=== PATIENT | male | born 1955 | race Caucasian/White ===

== ENCOUNTER 2020-11-11 14:57 | Outpatient (REF) | payer BC, SELFPAY ==
[2020-11-11 15:30] LABS: COVID-19 Test Negative (Negative)
== END 2020-11-11 14:58 | disposition home or self-care (01) ==
LOC: HO.LAB 14:57
PROVIDERS: PCP Internal Medicine; Visit Provider Internal Medicine
DX: Z20.822 Contact with and (suspected) exposure to COVID-19 (principal)
CPT/HCPCS: 36415; 87635; C9803

== ENCOUNTER 2021-12-24 14:49 | Outpatient (REF) | payer MEDICARE, SELFPAY ==
--- NOTE | ~2021-12-24 | CT_ITS ---
EXAMINATION: CT CHEST SCREENING CLINICAL INFORMATION: 41 pack year smoking history COMPARISON: None. TECHNIQUE: Multidetector volumetric CT imaging of the chest is performed without contrast using low dose technique. Additional 2D coronal and sagittal reformatted images and axial 3D maximum intensity projection (MIP) images are generated on the CT workstation. This CT examination was performed using dose optimization techniques as appropriate, variously including the following: *Automated exposure control *Adjustment of mA and/or kV according to patient size (this includes techniques or standardized protocols for targeted exams where dose is matched to indication/reason for exam; i.e. extremities or head) *Use of iterative reconstruction technique DLP: 299 mGy-cm FINDINGS: LUNGS: There is mild emphysema. There is mild biapical pleural and parenchymal scarring. There is mild biapical pleural and parenchymal scarring. There is a 2 mm right upper lobe nodule axial image 68 series 5. There is a 2 mm right upper lobe nodule axial image 81 series 5. There is a 3 mm right upper lobe nodule axial image 75 series 5. There is a 2 mm right upper lobe nodule axial image 90 series 5. There is a 2 mm right upper lobe nodule axial image 98 series 5. There is a 2 mm left lower lobe nodule axial image 217 series 5. There are several small peripheral or subpleural right lower lobe nodules adjacent to the major fissures suggestive of subpleural lymph nodes, largest measuring 2 x 5 mm axial image 279 series 5. There is a 2 mm calcified right lower lobe nodule axial image 373 series 5. There is a 2 mm left lower lobe nodule axial image 386 series 5. MEDIASTINUM: The mediastinum is normal. CORONARY ARTERY CALCIFICATION: Moderate. PLEURA: There is no pleural effusion. No pleural mass or thickening. AXILLA: No lymphadenopathy. UPPER ABDOMEN: Unremarkable OSSEOUS STRUCTURES: Degenerative changes. CT/CT lung screening IMPRESSION: Mild emphysema. Mild biapical pleural and parenchymal scarring. Small pulmonary nodules, largest measuring 4 mm in the left lower lobe. Coronary artery calcification. ASSESSMENT: Lung-RADS category 2: Benign RECOMMENDATION: Annual low-dose chest CT follow-up recommended.
== END 2021-12-24 14:50 | disposition home or self-care (01) ==
LOC: HO.CT 14:49
PROVIDERS: PCP Internal Medicine; Visit Provider Physician Assistant Medical
DX: Z12.2 Encounter for screening for malignant neoplasm of respiratory organs (principal); Z87.891 Personal history of nicotine dependence
CPT/HCPCS: 71271; G0296

== ENCOUNTER 2023-01-09 13:05 | Day surgery (SDC) | payer MEDICARE, SELFPAY ==
[2023-01-06 06:44] VITALS: BMI 30.8
--- NOTE | 2023-01-06 10:04 | HO.ANESPROP2 ---
HPI - Anesthesia Eval Consult details Narrative: 67yo M for Colonoscopy PMFSH Active Problems Active Problems: All Active Problems (Updated 01/06/23 @ 06:41 by Morena Holley, RN) Snoring (Acute) Nicotine dependence, cigarettes, uncomplicated (Acute) Past Medical History Medical History (Updated 01/06/23 @ 06:41 by Morena Holley RN) COPD (chronic obstructive pulmonary disease) Thyroid disease Tubular adenoma of colon (~2018) Surgical History Surgical History (Updated 12/24/21 @ 14:34 by Natacha Stephens PA-C) History of surgery on left wrist History of colonoscopy Social History Social History (Updated 12/24/21 @ 14:50 by Natacha Stephens PA-C) Alcohol intake: current Alcohol intake frequency: a few times a week Alcohol type: beer Patient Tobacco Use Status: Current everyday Tobacco user Tobacco use type: Cigarette Years Smoked: (onset 24, 1ppd x 42yrs, 40pyh) Current occupational status: retired [employer] Allergies Allergy/AdvReac Type Severity Reaction Status Date / Time No Known Allergies Allergy Verified 01/06/23 06:40 Home Medications Medication Instructions Recorded Confirmed Last Taken Type albuterol sulfate 90 mcg/actuation 1 puff inhalation QID 01/06/23 Unknown History aerosol inhaler (ProAir HFA) fluticasone propionate 110 2 puff inhalation BID 01/06/23 Unknown History mcg/actuation HFA aerosol inhaler (Flovent HFA) levothyroxine 125 mcg tablet 125 mcg PO DAILY 01/06/23 Unknown History loratadine 10 mg tablet 10 mg PO DAILY 01/06/23 Unknown History Exam Exam Date and Time: January 06, 2023 1004 Height,Weight and Vital Signs: Height 6 ft Weight 102.965 kg Assessment and Plan Assessment Anesthesia Assessment: Chart Reviewed
[2023-01-09 13:18] VITALS: BP 153/90; PULSE 92; RESP 16; TEMP 36.8; O2SAT 98
--- NOTE | 2023-01-09 13:23 | P.CONAN_ITS ---
[facility] Active Problems Active Problems: All Active Problems (Updated 01/06/23 @ 06:41 by Morena Holley, ALEKS) Snoring (Acute) Nicotine dependence, cigarettes, uncomplicated (Acute) Past Medical History Medical History (Updated 01/09/23 @ 13:32 by Mara Rios RN) Hx of fracture of clavicle COPD (chronic obstructive pulmonary disease) Thyroid disease Tubular adenoma of colon (~2018) Surgical History Surgical History History of surgery on left wrist History of colonoscopy Social History Social History Alcohol intake: current Alcohol intake frequency: a few times a week Alcohol type: beer Patient Tobacco Use Status: Former Tobacco user Quit Date: 1 1/2yr ago Tobacco use type: Cigarette Years Smoked: (onset 24, 1ppd x 42yrs, 40pyh) Use of substances other than those prescribed or required for medical reasons: No Are you DNR?: No Advance Directives: No Advance Directives Information Provided: Yes Current occupational status: retired [employer] Allergies Allergy/AdvReac Type Severity Reaction Status Date / Time No Known Allergies Allergy Verified 01/06/23 06:40 Active Medications: Current Medications Albuterol Sulfate (Albuterol Sulfate (0.083%) 2.5 Mg/3 Ml Vial.Neb) 2.5 mg INHALE ONCE PRN PRN Reason: Shortness of Breath/Wheezing Lactated Ringer's (Lr) 1,000 mls @ 100 mls/hr IVCONT .Q10H RYLEE Sodium Biphosphate/Sodium Phosphate (Sodium Phosphate,Callahan-Dibasic 133 Ml Enema) 133 ml AL ONCE PRN PRN Reason: Poor Colonoscopy Prep Results Home Medications Medication Instructions Recorded Confirmed Last Taken Type albuterol sulfate 90 mcg/actuation 1 puff inhalation QID 01/06/23 01/09/23 Unknown History aerosol inhaler (ProAir HFA) fluticasone propionate 110 2 puff inhalation BID 01/06/23 01/09/23 Unknown History mcg/actuation HFA aerosol inhaler (Flovent HFA) levothyroxine 125 mcg tablet 125 mcg PO DAILY 01/06/23 01/09/23 Unknown History loratadine 10 mg tablet 10 mg PO DAILY 01/06/23 01/09/23 Unknown History Exam Exam Date and Time: January 09, 2023 1323 Height,Weight and Vital Signs: Height 6 ft Weight 102.965 kg
[2023-01-09] MEDS: Lactated Ringers 1,000 ML 100 ML IVCONT (13:31)
[2023-01-09 14:58] VITALS: BP 115/64; PULSE 78; RESP 16; TEMP 36.4; O2SAT 97
--- NOTE | 2023-01-09 15:00 | P.BOP_ITS ---
Brief Operative Note Date of Service: 01/09/23 Pre-op diagnosis: Screening Post-op diagnosis: other (Colon polyps) Procedure: Colonoscopy to the cecum and TI with cold snare polypectomy x 2 Surgeon: Nicola Fernandez MD Anesthesia: MAC Was an Infrastructure Architect used for this Procedure?: No Estimated blood loss (mL): 2.0 Pathology: other (A. Rectal polyp B. Polyp at 20cm) Condition: stable Disposition: PACU
[2023-01-09 15:13] VITALS: BP 120/83; PULSE 75; RESP 16; TEMP 36.3; O2SAT 97
--- NOTE | 2023-01-11 10:50 | OP_ITS ---
DATE OF SERVICE: 01/09/2023 SURGEON: Nicola Fernandez MD INDICATIONS: The patient presents for evaluation of colorectal cancer screening. Full consent was obtained from him for this, including risks of bleeding and perforation. PREOPERATIVE DIAGNOSIS: Colorectal cancer screening. POSTOPERATIVE DIAGNOSIS: PROCEDURE PERFORMED: Colonoscopy to the cecum and terminal ileum with cold snare polypectomy x2. ESTIMATED BLOOD LOSS: COMPLICATIONS: ANESTHESIA: Monitored anesthesia care. ASSISTANTS: SPECIMENS: POSTOPERATIVE DIAGNOSES: Colorectal cancer screening, small colon polyp, diverticulosis, and internal hemorrhoids. DESCRIPTION OF PROCEDURE: The patient was placed in the left lateral decubitus position. The digital rectal exam revealed no abnormalities. The Olympus video pediatric colonoscope was entered into the rectum, advanced easily to the cecum. Once in the cecum I did identify normal-appearing cecal pouch with appendiceal orifice and a normal-appearing ileocecal valve. The terminal ileum was cannulated and appeared normal. Scope was withdrawn back in the colon. The entire cecum and ileocecal valve appeared normal. The scope was then slowly withdrawn assessing all mucosal surfaces carefully. Preparation was excellent. At 20 cm was an approximately 4 mm polyp, which was removed by cold snare polypectomy, recovered by suction. The polypectomy site appeared clean, without any sign of residual polyp nor bleeding. There was a mild amount of sigmoid diverticulosis. I did not visualize any sign of colitis nor angiodysplasia. In the rectum, seen in the retroflexed position, was an approximately 4 or 5 mm polyp, which was removed by cold snare polypectomy and recovered by suction. The polypectomy site appeared clean, without any sign of residual polyp nor significant bleeding. Small internal hemorrhoids were noted as well. The scope was straightened and withdrawn from the patient. He tolerated the procedure well and was returned to the recovery area in stable condition. IMPRESSION: 1. Colon polyps. 2. Diverticulosis. 3. Internal hemorrhoids. PLAN: The results of the pathology will be checked. I would recommend a repeat colonoscopy in 5 years for further screening. He was advised not to use any aspirin nor NSAIDs for 1 week. MD RICKIE Alvarez/BECKA / [id number]
== END 2023-01-09 15:41 | disposition home or self-care (01) ==
PROVIDERS: PCP Internal Medicine; Visit Provider Internal Medicine
PROC: 0DJD8ZZ Inspection of Lower Intestinal Tract, Via Natural or Artificial Opening Endoscopic (ICD-10-PCS; CPT 45378; principal; 2023-01-09 13:40)
DX: Z12.11 Encounter for screening for malignant neoplasm of colon (principal); Z86.010 Personal history of colon polyps; K63.5 Polyp of colon; K62.1 Rectal polyp; K57.30 Diverticulosis of large intestine without perforation or abscess without bleeding; K64.8 Other hemorrhoids; J44.9 Chronic obstructive pulmonary disease, unspecified; E03.9 Hypothyroidism, unspecified; Z79.51 Long term (current) use of inhaled steroids; Z79.899 Other long term (current) drug therapy; Z87.891 Personal history of nicotine dependence
CPT/HCPCS: 45385; 88305; J2250

== ENCOUNTER 2023-04-13 07:57 | Outpatient (REF) | payer MEDICARE, SELFPAY ==
--- NOTE | ~2023-04-13 | CT_ITS ---
EXAMINATION: CT CHEST SCREENING CLINICAL INFORMATION: Former smoker. Quit 2 years ago. 42 pack year history. COMPARISON: Previous chest CT December 2021 TECHNIQUE: Multidetector volumetric CT imaging of the chest is performed without contrast using low dose technique. Additional 2D coronal and sagittal reformatted images and axial 3D maximum intensity projection (MIP) images are generated on the CT workstation. This CT examination was performed using dose optimization techniques as appropriate, variously including the following: *Automated exposure control *Adjustment of mA and/or kV according to patient size (this includes techniques or standardized protocols for targeted exams where dose is matched to indication/reason for exam; i.e. extremities or head) *Use of iterative reconstruction technique DLP: 63 mGy-cm FINDINGS: LUNGS: Emphysema. Mild biapical pleural and parenchymal scarring. Small pulmonary nodules are stable. Largest measures 2 x 5 mm in the peripheral or subpleural right lower lobe adjacent to the fissure axial image 265 series 5 and probably represents a subpleural lymph node. 2 cm cyst in the right lower lobe. Lungs are otherwise clear. No endobronchial or endotracheal lesion. MEDIASTINUM: The mediastinum is normal. CORONARY ARTERY CALCIFICATION: Moderate PLEURA: There is no pleural effusion. No pleural mass or thickening. AXILLA: No lymphadenopathy. UPPER ABDOMEN: Unremarkable OSSEOUS STRUCTURES: Unremarkable. CT/CT lung screening IMPRESSION: Mild emphysema and biapical pleural and parenchymal scarring. Stable small pulmonary nodules. ASSESSMENT: Lung-RADS category 2: Benign RECOMMENDATION: Annual low-dose chest CT follow-up recommended
== END 2023-04-13 07:58 | disposition home or self-care (01) ==
LOC: HO.CT 07:57
PROVIDERS: PCP Internal Medicine; Visit Provider Physician Assistant Medical
DX: Z12.2 Encounter for screening for malignant neoplasm of respiratory organs (principal); F17.210 Nicotine dependence, cigarettes, uncomplicated
CPT/HCPCS: 71271

== ENCOUNTER 2024-04-15 12:39 | Outpatient (REF) | payer MEDICARE, SELFPAY | END 2024-04-15 12:40 | disposition home or self-care (01) | LOC: HO.CT 12:39 | PROVIDERS: PCP Internal Medicine; Visit Provider Physician Assistant Medical | DX: Z12.2 Encounter for screening for malignant neoplasm of respiratory organs (principal); F17.210 Nicotine dependence, cigarettes, uncomplicated | CPT/HCPCS: 71271 ==

== ENCOUNTER → 2024-04-15 12:46 | Outpatient (BNV) | payer MEDICARE, SELFPAY | PROVIDERS: PCP Internal Medicine; Visit Provider Radiology Diagnostic Radiology | DX: F17.210 Nicotine dependence, cigarettes, uncomplicated (principal) | CPT/HCPCS: 71271 ==